=== PATIENT | male | born 1945 | race Caucasian/White ===

== ENCOUNTER 2016-10-04 16:43 | Emergency (ER) | payer OTHER ==
[2013-11-18 09:50] VITALS: BMI 24.7
[~2016-10-04 16:43] MED LIST: ALEVE220 MG PO; CARDIZEM CD240 MG PO; CENTRUM COMPLE1 EACH PO; CORDARONE200 MG PO; LANOXIN250 MCG PO; LIPITOR10 MG PO; PRADAXA150 MG PO; TRANDATE100 MG PO
== END 2016-10-04 21:35 | disposition home or self-care (01) ==
LOC: D.ER 16:43
DX: S61.211A Laceration without foreign body of left index finger without damage to nail, initial encounter (principal); W26.9XXA Contact with unspecified sharp object(s), initial encounter; Y93.89 Activity, other specified; Y92.019 Unspecified place in single-family (private) house as the place of occurrence of the external cause; S00.03XA Contusion of scalp, initial encounter; Z79.01 Long term (current) use of anticoagulants; S63.281A Dislocation of proximal interphalangeal joint of left index finger, initial encounter; I10 Essential (primary) hypertension

== ENCOUNTER 2016-10-14 08:07 | Emergency (ER) | payer OTHER ==
[2013-11-18 09:50] VITALS: BMI 24.7
== END 2016-10-14 09:13 | disposition home or self-care (01) ==
LOC: D.ER 08:07
DX: S61.211D Laceration without foreign body of left index finger without damage to nail, subsequent encounter (principal); X58.XXXD Exposure to other specified factors, subsequent encounter; Y92.89 Other specified places as the place of occurrence of the external cause; Z48.02 Encounter for removal of sutures; I10 Essential (primary) hypertension; Z79.01 Long term (current) use of anticoagulants

== ENCOUNTER 2017-11-09 15:40 | Emergency (ER) | payer OTHER, MEDICARE ==
[~2017-11-09] VITALS: Ht 188 cm; Wt 81.8 kg
[2017-11-09 16:13] VITALS: Ht 188 cm; Wt 81.8 kg
[2017-11-09 16:48] LABS: BASOPHILS 0.1 % (0-2); EOSINOPHILS 0.1 % (0-7); HEMATOCRIT 45.7 % (42.0-54.0); HEMOGLOBIN 15.6 g/dL (13.5-17.5); IMMATURE GRANULOCYTES 0.2 % (0-5); LYMPHOCYTES 6.4 % (15-50); MCHC 34.1 g/dL (31.0-37.0); MCV 90.7 fL (80.0-100.0); MEAN PLATELET VOLUME 9.9 fL (7.4-10.4); MONOCYTES 10.7 % (2-11); NEUTROPHILS 82.5 % (40-80); PLATELET COUNT 178 10x3/uL (130-400); RBC 5.04 10x6/uL (4.20-6.10); RDW 15.9 % (11.5-14.5); WBC 12.3 10x3/uL (4.8-10.8)
[2017-11-09 17:03] LABS: ALBUMIN 3.6 g/dL (3.4-5.0); BILIRUBIN - TOTAL 1.11 mg/dL (0.2-1.3); CALCIUM 9.5 mg/dL (8.5-10.1); CARBON DIOXIDE 26.3 mmol/L (21.0-32.0); CREATININE - SERUM 1.3 mg/dL (0.6-1.3); POTASSIUM - SERUM 4.3 mmol/L (3.5-5.1); PROTEIN - SERUM 8.5 g/dL (6.4-8.2)
[2017-11-09 17:42] LABS: APPEARANCE CLOUDY (CLEAR); COLOR PINK (YELLOW)
[2017-11-09 17:43] LABS: BACTERIA MODERATE /hpf (NONE SEEN); BILIRUBIN NEGATIVE (NEGATIVE); EPITHELIAL CELLS NSEEN /hpf (0-5); GLUCOSE NEGATIVE (NEGATIVE); KETONE NEGATIVE (NEGATIVE); NITRITE NEGATIVE (NEGATIVE); PROTEIN TRACE mg/dL (NEGATIVE); RED CELLS - URINE >50 /hpf (0-5); UROBILINOGEN NORMAL (NORMAL)
[2017-11-09] MEDS ORDERED: FLOMAX0.4 MG PO (18:49)
[2017-11-09] MEDS ORDERED: HYDROCODON-ACE1 EAC7 PO (18:49)
[2017-11-09] MEDS ORDERED: CIPRO500 MG PO (18:49)
[2017-11-09] MEDS ORDERED: ZOFRAN4 MG PO (18:49)
[2017-11-09 19:16] VITALS: BP 138/69
== END 2017-11-09 19:18 | disposition home or self-care (01) ==
LOC: D.ER 15:40
PROVIDERS: Family Medicine
DX: N20.1 Calculus of ureter (principal); R35.0 Frequency of micturition; I10 Essential (primary) hypertension

== ENCOUNTER 2018-07-08 15:28 | Emergency (ER) | payer OTHER, MEDICARE ==
[~2018-07-08] VITALS: Ht 188 cm; Wt 81.8 kg
[~2018-07-08 15:28] MED LIST changes: +CIPRO500 MG PO; +FLOMAX0.4 MG PO; +HYDROCODON-ACE1 EAC7 PO; +ZOFRAN4 MG PO
[2018-07-08 15:29] VITALS: BP 121/77; Ht 188 cm; Wt 81.8 kg
== END 2018-07-08 16:46 | disposition home or self-care (01) ==
LOC: D.ER 15:28
DX: S00.81XA Abrasion of other part of head, initial encounter (principal); W18.30XA Fall on same level, unspecified, initial encounter; Y93.89 Activity, other specified; Y92.89 Other specified places as the place of occurrence of the external cause; Z79.01 Long term (current) use of anticoagulants; S16.1XXA Strain of muscle, fascia and tendon at neck level, initial encounter